=== PATIENT | male | born 1985 | race Caucasian/White ===

== ENCOUNTER → 2017-05-30 15:16 | Outpatient (CLI) | payer OTHER, SELFPAY ==
--- NOTE | 2017-05-30 15:20 | CT_ITS ---
CT sinus wo con COMPARISON: CT scan of brain 02/13/2013 HISTORY: Suspected sinusitis TECHNIQUE: Multiple axial scans of the peroneal sinuses and maxillofacial bones were obtained. Sagittal and coronal reformats were evaluated as well. FINDINGS: The peroneal sinuses appear clear with no acute or chronic inflammatory changes noted. The nasal septum is in midline with minimal bowing to the left inferiorly. There is minimal fluid in the right mastoids, left mastoid are clear. There is no abnormality of the facial bones identified. IMPRESSION: Suspect minimal right mastoiditis, no acute or chronic paranasal sinus disease identified.
== END ==
PROVIDERS: PCP Nurse Practitioner Family; Visit Provider Otolaryngology
DX: J32.0 Chronic maxillary sinusitis (principal)
CPT/HCPCS: 70486

== ENCOUNTER → 2017-09-15 15:55 | Outpatient (REF) | payer OTHER, SELFPAY ==
[2017-09-15 17:41] LABS: Amphetamine/Metha Screen,Urine Negative ng/mL (<1000); Barbiturates Screen,Urine Negative ng/mL (<200); Benzodiazepines Screen,Urine Negative ng/mL (<200); Cannabinoid Screen,Urine Negative ng/mL (<50); Cocaine Screen,Urine Negative ng/mL (<300); Methadone Screen,Urine Negative ng/mL (<300); Opiate Screen,Urine Negative ng/mL (<300); Phencyclidine Screen,Urine Negative ng/mL (<25)
== END ==
LOC: LAB 15:55
PROVIDERS: Visit Provider Emergency Medicine
DX: Z79.899 Other long term (current) drug therapy (principal)
CPT/HCPCS: 80305

== ENCOUNTER → 2017-12-19 13:48 | Outpatient (CLI) | payer OTHER, SELFPAY ==
[2017-12-19 15:20] LABS: Amphetamine/Metha Screen,Urine Negative ng/mL (<1000); Barbiturates Screen,Urine Negative ng/mL (<200); Benzodiazepines Screen,Urine Negative ng/mL (<200); Cannabinoid Screen,Urine Negative ng/mL (<50); Cocaine Screen,Urine Negative ng/mL (<300); Methadone Screen,Urine Negative ng/mL (<300); Opiate Screen,Urine Negative ng/mL (<300); Phencyclidine Screen,Urine Negative ng/mL (<25)
[2018-01-16 20:17] LABS: Benzodiazepines POSITIVE; Lorazepam POSITIVE
== END ==
PROVIDERS: PCP Nurse Practitioner Family; Visit Provider Nurse Practitioner Family
DX: Z79.899 Other long term (current) drug therapy (principal)
CPT/HCPCS: 80305; 80346

== ENCOUNTER → 2018-09-04 16:47 | Outpatient (CLI) | payer SELFPAY ==
[2018-09-04 19:05] LABS: Amphetamine/Metha Screen,Urine Negative ng/mL (<1000); Barbiturates Screen,Urine Negative ng/mL (<200); Benzodiazepines Screen,Urine Negative ng/mL (<200); Cannabinoid Screen,Urine Negative ng/mL (<50); Cocaine Screen,Urine Negative ng/mL (<300); Methadone Screen,Urine Negative ng/mL (<300); Opiate Screen,Urine Negative ng/mL (<300); Phencyclidine Screen,Urine Negative ng/mL (<25)
[2018-09-12 23:07] LABS: Alprazolam Negative (Cutoff=100); Benzodiazepines Positive ng/mL (Cutoff=100); Clonazepam Negative (Cutoff=100); Flurazepam Negative (Cutoff=100); Lorazepam Positive (.); Midazolam Negative (Cutoff=100); Temazepam Negative (Cutoff=100); Triazolam Negative (Cutoff=100)
== END ==
PROVIDERS: Physician Assistant; Visit Provider Nurse Practitioner Family
DX: Z79.891 Long term (current) use of opiate analgesic (principal); Z79.899 Other long term (current) drug therapy
CPT/HCPCS: 80305; 80346

== ENCOUNTER 2020-02-29 16:21 | Emergency (ER) | payer BC, SELFPAY ==
--- NOTE | 2020-02-29 16:09 | ECG_ITS ---
APPROVED REPORT Exam: Resting ECG HR:76 bpm ECG Measurements Heart Rate 76 AXES PA 122 P 75 QRSd 88 QRS 87 QT 374 T 62 QTc 420 Conclusion Normal sinus rhythm ST abnormality, no change from prior Abnormal ECG Electronically signed by : Vinod Laguerre, 02/29/2020 19:53:55
[2020-02-29 16:22] VITALS: BP 153/97; PULSE 79; RESP 20; TEMP 37; O2SAT 100; BMI 21.9
--- NOTE | 2020-02-29 16:23 | XR_ITS ---
PROCEDURE: XR CHEST PORTABLE CLINICAL HISTORY: chest pain COMPARISON: CR CXR CHEST(2 VIEWS-NOT PORTABLE) from 07/02/2012 CR CXR CHEST(2 VIEWS-NOT PORTABLE) from 02/13/2013 FINDINGS: The cardiomediastinal silhouette and pulmonary vascularity are within normal limits. The lungs are clear without infiltrates, suspicious nodules, or pleural effusions. No acute bony abnormalities. IMPRESSION: No acute findings. Dictated by: Moses Herrera MD 02/29/2020 16:51 Moses Herrera MD in [place] 02/29/2020 16:51
[2020-02-29 16:40] LABS: Basophils % 0.3 % (0.1-2.0); Eosinophils % 0.4 % (0.1-12.0); Hematocrit 43.9 % (42.0-52.0); Hemoglobin 15.6 g/dL (14.1-18.0); Lymphocytes # 1.7 K/mm3 (0.7-4.5); Lymphocytes % 22.2 % (10-50); Mean Corpuscular HGB Conc 35.5 g/dL (31.8-35.4); Mean Corpuscular Hemoglobin 31.1 pg (27.0-31.2); Mean Corpuscular Volume 87.5 fl (80-94); Mean Platelet Volume 7.9 fl (7.4-10.4); Monocytes # 0.5 K/mm3 (0.1-1.0); Monocytes % 6.9 % (1.7-9.3); Neutrophils # 5.3 K/mm3 (1.8-7.8); Neutrophils % 70.3 % (37.0-80.0); Platelet Count 181 K/mm3 (142-424); Red Blood Count 5.02 M/mm3 (4.60-6.20); Red Cell Distribution Width 13.2 % (11.5-17.5); White Blood Count 7.5 K/mm3 (4.8-10.8)
[2020-02-29 16:41] LABS: Chloride 100 mmol/L (98-107); Potassium 3.5 mmoL/L (3.5-5.1); Sodium 139 mmol/L (136-145)
[2020-02-29 16:44] LABS: Anion Gap 12.5 mEq/L (5-15); Blood Urea Nitrogen 18 mg/dl (9-20); Carbon Dioxide 30 mmol/L (22.0-30.0); Creatinine Clearance Estimated 131 mL/min (50-200); Estimated Glomerular Filt Rate 95 ml/min (>60); GFR (African American) 116 ML/MIN (>60)
[2020-02-29 16:45] LABS: Calcium 9.5 mg/dl (8.4-10.2); Glucose 132 mg/dl (74-100)
--- NOTE | 2020-02-29 16:58 | CT_ITS ---
PROCEDURE: CT ABDOMEN WO CON CLINICAL HISTORY: epigastric pain Abdominal pain, acute epigastric pain COMPARISON: CT ABDPELW/O CT ABD PELVIS W/O CONTRAST from 03/28/2014 TECHNIQUE: Axial images obtained with sagittal and coronal reformats. All CT scans at the facility use one or more dose reduction, viz: automated exposure control, ma/kV adjustment per patient size (including targeted exams where dose is matched to indication, i.e. head), or iterative reconstruction technique. FINDINGS: There is a 6 mm noncalcified nodule in the right lower lobe posteriorly. There is minimal thickening of the pericardium anteriorly. The liver, spleen, adrenal glands, pancreas, and kidneys have an unremarkable appearance. No renal or ureteral calculi. No hydronephrosis. The appendix is not clearly delineated. No secondary signs of appendicitis. No intestinal obstruction or free air. Multiple unopacified bowel loops in the abdomen or pelvis which could obscure or mimic pathology. If symptoms persist, consider repeat exam with IV and oral contrast.. There is some minimal central prostate calcifications. Urinary bladder wall slightly thickened but could be due to nondistention. No acute bony findings. IMPRESSION: 1. No acute finding. 2. Multiple unopacified bowel loops in the abdomen or pelvis which could obscure or mimic pathology. If symptoms persist, consider repeat exam with IV and oral contrast. Dictated by: Moses Herrera MD 03/01/2020 06:07 Moses Herrera MD in [place] 03/01/2020 06:07
[2020-02-29 17:00] LABS: Troponin I < 0.01 ng/ml (0.00-0.034)
--- NOTE | 2020-02-29 17:03 | HMH.EDGENADL ---
ED Disposition Clinical Impression: Epigastric abdominal pain Disposition: Home, Self-Care Condition on Discharge: Good Instructions: DI for Epigastric Pain Additional Instructions: You have been evaluated for epigastric pain. This could be due to reflux or other GI process. Please take omeprazole as prescribed. Follow-up with your PCP as soon as available. You may need an EGD. Return to the emergency department for any new or worsening symptoms, chest pain with exertion, syncope, any other concerns. Prescriptions: Omeprazole [Omeprazole 20mg Capsule] 20 mg PO DAILY #30 cap Transmission Status: Pending to [facility] Referrals: Keenan Wallace MD [Primary Care Provider] - Time of Disposition: 17:41 - Critical Care Critical Care Time: No Attestation: On 02/29/20, the high probability of a clinically significant, sudden or life threatening deterioration of the following system(s) required my full and direct attention, intervention and personal management. The time I documented below is in addition to time spent performing reported procedures but includes the following listed in this critical care notation. Medical Decision Making - Medical Records Medical records reviewed: Yes: I reviewed the patient's medical records. - Chepe Inquiry Pt receiving controlled substance: No Vital Signs: 02/29/20 16:22 Temperature 98.6 F Temperature Source Oral Pulse Rate [Left Radial] 79 Respiratory Rate 20 Blood Pressure [Right Arm] 153/97 H Blood Pressure Mean [Right Arm] 115 Blood Pressure Source [Right Arm] Automatic Cuff Blood Pressure Position [Right Arm] Sitting 02 Sat by Pulse Oximetry 100 Oxygen Delivery Method Room Air - Lab Data Lab Results 02/29/20 16:20: WBC 7.5, RBC 5.02, Hgb 15.6, Hct 43.9, MCV 87.5, MCH 31.1, MCHC 35.5 H, RDW 13.2, Plt Count 181, MPV 7.9, Neut % (Auto) 70.3, Lymph % (Auto) 22.2, [place] % (Auto) 6.9, Eos % (Auto) 0.4, Baso % (Auto) 0.3, Neut # (Auto) 5.3, Lymph # (Auto) 1.7, [place] # (Auto) 0.5, Eos # (Auto) 0.0, Baso # (Auto) 0.0 02/29/20 16:20: Sodium 139, Potassium 3.5, Chloride 100, Carbon Dioxide 30, Anion Gap 12.5, BUN 18, Creatinine 0.90, Estimated Creat Clear 131, Estimated GFR 95, Est GFR ( Amer) 116, Glucose 132 H, Calcium 9.5, Troponin I < 0.01 02/29/20 16:20: SARS-CoV-2 IgG Ab (Rapid) Negative, SARS-CoV-2 IgM Ab (Rapid) Negative Result diagrams: 02/29/20 16:20 02/29/20 16:20 Orders (Tests/Meds): ED MEDICATIONS Discontinued Medications Generic Name Dose Route Start Last Admin Trade Name Freq PRN Reason Stop Dose Admin Aspirin 325 mg 02/29/20 16:24 02/29/20 16:39 Aspirin 325mg Tablet PO 02/29/20 16:25 Not Given ONCE ONE Aspirin 324 mg 02/29/20 16:39 02/29/20 16:53 Aspirin 81mg Chewable Tablet PO 02/29/20 16:40 Not Given ONCE ONE ORDERS Category Date Time Status CT abdomen wo con Stat Cat Scan 02/29/20 16:58 Taken Troponin I Q3H Lab 02/29/20 19:30 Ordered Troponin I Q3H Lab 02/29/20 22:30 Ordered Medical Decision Narrative: In summary this is a 34-year-old male presenting to the emergency department with epigastric pain, chest pain. Patient clinically stable on arrival. Vital signs are within normal limits. Concern for hiatal hernia, gastritis, pancreatitis, biliary tract pathology, CAD. Will obtain CBC, CMP, chest x-ray, EKG, troponin profile, lipase, CT scan of the abdomen and pelvis. EKG shows sinus rhythm without evidence of ischemia. He has an allergy to IV contrast. Does not want to be premedicated. We will obtain CT scan without contrast. Initial laboratory results are reassuring. No significant leukocytosis. No anemia. Initial troponin is not elevated. Covid negative. CT scan of the abdomen and pelvis does not show a hiatal hernia or other acute pathology. Repeat troponin shows no change. On reassessment patient said that he was feeling better. Not having epigastric pain or chest
[2020-02-29 17:31] LABS: Coronavirus 19 IgG Antibody Negative (Negative); Coronavirus 19 IgM Antibody Negative (Negative)
[2020-02-29 17:49] LABS: Lipase 104 U/L (23-300)
[2020-02-29 17:55] VITALS: BP 125/72; PULSE 62; O2SAT 100
[2020-02-29 18:03] VITALS: BP 129/73; PULSE 69; O2SAT 96
[2020-02-29 18:39] VITALS: BP 114/82; PULSE 71; O2SAT 99
[2020-02-29 19:02] VITALS: BP 128/75; PULSE 66; O2SAT 99
[2020-02-29 19:07] LABS: Troponin I < 0.01 ng/ml (0.00-0.034)
[2020-02-29 19:14] VITALS: BP 128/75; PULSE 77; RESP 15; TEMP 36.6; O2SAT 97
== END 2020-02-29 19:17 | disposition home or self-care (01) ==
PROVIDERS: Emergency Provider Emergency Medicine; PCP Emergency Medicine
DX: R10.13 Epigastric pain (principal); R07.9 Chest pain, unspecified; Z01.84 Encounter for antibody response examination; F41.9 Anxiety disorder, unspecified; Z88.0 Allergy status to penicillin; Z79.899 Other long term (current) drug therapy
CPT/HCPCS: 71045; 74150; 80048; 83690; 84484; 85025; 86328; 93005; 99283; 99284

== ENCOUNTER → 2020-03-03 14:07 | Outpatient (CLI) | payer BC, SELFPAY ==
[2020-03-03 14:16] LABS: Adenovirus F 40/41, stool Not Detected (NotDetected); Astrovirus Not Detected (NotDetected); Campylobacter Not Detected (NotDetected); Clostridium Difficile A/B, PCR Not Detected (NotDetected); Cryptosporidium Not Detected (NotDetected); Cyclospora Cayetanesis Not Detected (NotDetected); Entamoeba histolytica Not Detected (NotDetected); Enteroaggregative E coli Not Detected (NotDetected); Enteropathogenic E coli Not Detected (NotDetected); Enterotoxigenic E coli Not Detected (NotDetected); Giardia lamblia Not Detected (NotDetected); Norovirus Not Detected (NotDetected); Plesimonas Shigalloides, PCR Not Detected (NotDetected); Rotavirus A Not Detected (NotDetected); Salmonella, PCR Not Detected (NotDetected); Sapovirus Not Detected (NotDetected); Shiga-like toxin E coli Not Detected (NotDetected); Shigella Enterovasive E coli Not Detected (NotDetected); Vibrio Cholerae Not Detected (NotDetected); Vibrio, PCR Not Detected (NotDetected); Yersinia Entercolitica, PCR Not Detected (NotDetected)
== END ==
PROVIDERS: Visit Provider Nurse Practitioner Family
DX: R19.7 Diarrhea, unspecified (principal)
CPT/HCPCS: 87506

== ENCOUNTER → 2020-03-03 14:33 | Outpatient (CLI) | payer BC, SELFPAY | PROVIDERS: PCP Nurse Practitioner Family; Visit Provider Nurse Practitioner Family | DX: Z11.52 Encounter for screening for COVID-19 (principal) | CPT/HCPCS: U0003 ==

== ENCOUNTER 2020-03-21 09:18 | Emergency (ER) | payer BC, SELFPAY ==
[2020-03-21 09:18] VITALS: BP 135/84; PULSE 100; RESP 16; TEMP 36.9; O2SAT 95; BMI 21.9
--- NOTE | 2020-03-21 09:32 | HMH.EDGENADL ---
ED Disposition Clinical Impression: Lightheadedness Disposition: Home, Self-Care Condition on Discharge: Good Instructions: DI for Dizziness-Nonvertigo Additional Instructions: Follow-up with your primary care provider, call for appointment. Referrals: Keenan Wallace MD [Primary Care Provider] - - Critical Care Critical Care Time: No Attestation: On 03/21/20, the high probability of a clinically significant, sudden or life threatening deterioration of the following system(s) required my full and direct attention, intervention and personal management. The time I documented below is in addition to time spent performing reported procedures but includes the following listed in this critical care notation. Medical Decision Making - Medical Records Medical records reviewed: Yes: I reviewed the patient's medical records. MR Comment: Reviewed recent emergency department visit on 02/29/2020. Chief complaint epigastric pain. Work-up unremarkable. - Chepe Inquiry Pt receiving controlled substance: No Vital Signs: 03/21/20 09:18 03/21/20 10:18 03/21/20 11:11 Temperature 98.5 F Temperature Source Oral Pulse Rate [Right] 100 H 79 66 Respiratory Rate 16 Blood Pressure [Right Arm] 135/84 121/73 113/75 Blood Pressure Mean [Right Arm] 101 89 87 Blood Pressure Source [Right Arm] Automatic Cuff Automatic Cuff Automatic Cuff Blood Pressure Position [Right Arm] Sitting Sitting Sitting 02 Sat by Pulse Oximetry 95 100 100 Oxygen Delivery Method Room Air Room Air Room Air - Lab Data Lab Results 03/21/20 10:08: WBC 5.1, RBC 5.22, Hgb 16.1, Hct 46.4, MCV 89.0, MCH 30.7, MCHC 34.6, RDW 13.5, Plt Count 179, MPV 8.3, Neut % (Auto) 71.9, Lymph % (Auto) 19.7, [place] % (Auto) 7.5, Eos % (Auto) 0.6, Baso % (Auto) 0.3, Neut # (Auto) 3.7, Lymph # (Auto) 1.0, [place] # (Auto) 0.4, Eos # (Auto) 0.0, Baso # (Auto) 0.0 03/21/20 10:08: Sodium 141, Potassium 3.5, Chloride 101, Carbon Dioxide 31 H, Anion Gap 12.5, BUN 15, Creatinine 1.00, Estimated Creat Clear 115, Estimated GFR 85, Est GFR ( Amer) 102, Glucose 98, Calcium 9.7, Total Bilirubin 1.0, AST 22, ALT 14, Alkaline Phosphatase 60, Troponin I < 0.01, Total Protein 8.2, Albumin 5.0, Globulin 3.2, Albumin/Globulin Ratio 1.6 Result diagrams: 03/21/20 10:08 03/21/20 10:08 Orders (Tests/Meds): ORDERS Category Date Time Status Troponin I Q3H Lab 03/21/20 12:45 Ordered Troponin I Q3H Lab 03/21/20 15:45 Ordered - ECG Data Tracing #1 EKG interpreted by Reinaldo Medina MD: Rhythm: sinus Rate: 68 [place]: normal Ectopy: none Conduction: normal ST Segment Changes: none T Wave Changes: none Q Waves: none No evidence of acute ischemia or injury Normal electrocardiogram General Adult HPI - General Stated complaint: dizzy, nausea Time Seen by Provider: 03/21/20 09:32 - History of Present Illness HPI narrative: For several days he has been lightheaded. Denies vertigo type of dizziness. However, he says that when this initially started his ears were popping a lot so he thought it might be an inner ear problem. However, symptoms have persisted. He admits to anxiety, especially Covid anxiety. He checks his pulse oximetry at home and says that his heart rate has been up to 100 sometimes, which concerns him. He has some nausea, but no vomiting or diarrhea. He was seen in the emergency department here on 02/29/2020 for epigastric pain, he says that he was told he was mildly dehydrated. Therefore, he has been drinking lots of fluids. He followed up with his primary care doctor in the office last week. He is not having chest pain or shortness of breath. No neurologic symptoms such as numbness, weakness, headaches, vision changes. - Related Data Previous Rx's Medication Instructions Recorded lorazepam 0.5 mg tablet 0.5 mg PO TID PRN #90 tab 01/12/20 Omeprazole [Omeprazole 20mg 20 mg PO DAILY #30 cap 02/29/20 Capsule] dicyclomine 20 mg tablet
--- NOTE | 2020-03-21 10:03 | ECG_ITS ---
APPROVED REPORT Exam: Resting ECG HR:68 bpm ECG Measurements Heart Rate 68 AXES SD 128 P 59 QRSd 88 QRS 80 QT 382 T 69 QTc 406 Conclusion Normal sinus rhythm Normal ECG Electronically signed by : Vinod Laguerre, 03/22/2020 05:57:39
[2020-03-21 10:18] VITALS: BP 121/73; PULSE 79; O2SAT 100
[2020-03-21 10:24] LABS: Basophils % 0.3 % (0.1-2.0); Eosinophils % 0.6 % (0.1-12.0); Hematocrit 46.4 % (42.0-52.0); Hemoglobin 16.1 g/dL (14.1-18.0); Lymphocytes % 19.7 % (10-50); Mean Corpuscular HGB Conc 34.6 g/dL (31.8-35.4); Mean Corpuscular Hemoglobin 30.7 pg (27.0-31.2); Mean Platelet Volume 8.3 fl (7.4-10.4); Monocytes # 0.4 K/mm3 (0.1-1.0); Monocytes % 7.5 % (1.7-9.3); Neutrophils # 3.7 K/mm3 (1.8-7.8); Neutrophils % 71.9 % (37.0-80.0); Platelet Count 179 K/mm3 (142-424); Red Blood Count 5.22 M/mm3 (4.60-6.20); Red Cell Distribution Width 13.5 % (11.5-17.5); White Blood Count 5.1 K/mm3 (4.8-10.8)
[2020-03-21 10:41] LABS: Chloride 101 mmol/L (98-107); Potassium 3.5 mmoL/L (3.5-5.1); Sodium 141 mmol/L (136-145)
[2020-03-21 10:44] LABS: Alanine Aminotransferase 14 U/L (12-78); Albumin/Globulin Ratio 1.6 (1.1-1.8); Alkaline Phosphatase 60 U/L (38-126); Anion Gap 12.5 mEq/L (5-15); Aspartate Amino Transferase 22 U/L (17-59); Blood Urea Nitrogen 15 mg/dl (9-20); Calcium 9.7 mg/dl (8.4-10.2); Carbon Dioxide 31 mmol/L (22.0-30.0); Creatinine Clearance Estimated 115 mL/min (50-200); Estimated Glomerular Filt Rate 85 ml/min (>60); GFR (African American) 102 ML/MIN (>60); Globulin 3.2 g/dL (1.3-3.2); Glucose 98 mg/dl (74-100); Total Protein,Serum 8.2 g/dl (6.3-8.2)
[2020-03-21 11:10] LABS: Troponin I < 0.01 ng/ml (0.00-0.034)
[2020-03-21 11:11] VITALS: BP 113/75; PULSE 66; O2SAT 100
[2020-03-21 11:41] VITALS: BP 114/66; PULSE 65; RESP 16; TEMP 36.9; O2SAT 100
== END 2020-03-21 11:42 | disposition home or self-care (01) ==
PROVIDERS: Emergency Provider Emergency Medicine; PCP Emergency Medicine
DX: R42 Dizziness and giddiness (principal); F41.9 Anxiety disorder, unspecified
CPT/HCPCS: 80053; 84484; 85025; 93005; 99282

== ENCOUNTER → 2020-03-24 17:59 | Outpatient (CLI) | payer BC, SELFPAY ==
[2020-03-24 18:23] LABS: Basophils % 0.3 % (0.1-2.0); Eosinophils # 0.1 K/mm3 (0.0-0.4); Eosinophils % 0.8 % (0.1-12.0); Hematocrit 43.9 % (42.0-52.0); Hemoglobin 15.3 g/dL (14.1-18.0); Lymphocytes # 1.9 K/mm3 (0.7-4.5); Lymphocytes % 27.6 % (10-50); Mean Corpuscular HGB Conc 34.9 g/dL (31.8-35.4); Mean Corpuscular Hemoglobin 30.6 pg (27.0-31.2); Mean Corpuscular Volume 87.9 fl (80-94); Mean Platelet Volume 8.4 fl (7.4-10.4); Monocytes # 0.5 K/mm3 (0.1-1.0); Neutrophils # 4.4 K/mm3 (1.8-7.8); Neutrophils % 64.2 % (37.0-80.0); Platelet Count 187 K/mm3 (142-424); Red Blood Count 4.99 M/mm3 (4.60-6.20); Red Cell Distribution Width 13.3 % (11.5-17.5); White Blood Count 6.9 K/mm3 (4.8-10.8)
[2020-03-24 19:06] LABS: Chloride 100 mmol/L (98-107); Sodium 138 mmol/L (136-145)
[2020-03-24 19:07] LABS: Potassium 4.1 mmoL/L (3.5-5.1)
[2020-03-24 19:09] LABS: Alanine Aminotransferase 11 U/L (12-78); Albumin/Globulin Ratio 1.7 (1.1-1.8); Alkaline Phosphatase 64 U/L (38-126); Anion Gap 13.1 mEq/L (5-15); Aspartate Amino Transferase 22 U/L (17-59); Bilirubin,Total 0.8 mg/dl (0.2-1.3); Blood Urea Nitrogen 17 mg/dl (9-20); Carbon Dioxide 29 mmol/L (22.0-30.0); Estimated Glomerular Filt Rate 85 ml/min (>60); GFR (African American) 102 ML/MIN (>60)
[2020-03-24 19:10] LABS: Calcium 9.7 mg/dl (8.4-10.2); Glucose 102 mg/dl (74-100)
== END ==
PROVIDERS: Visit Provider Nurse Practitioner Family
DX: N99.89 Other postprocedural complications and disorders of genitourinary system (principal); R34 Anuria and oliguria; M54.5 Low back pain
CPT/HCPCS: 80053; 85025; 87086

== ENCOUNTER 2020-04-07 17:13 | Emergency (ER) | payer BC, SELFPAY ==
[2020-04-07 17:15] VITALS: BP 154/54; PULSE 80; RESP 16; TEMP 36.6; O2SAT 98; BMI 20.6
--- NOTE | 2020-04-07 17:25 | HMH.EDGENADL ---
ED Disposition Clinical Impression: Periumbilical abdominal pain Low back pain Qualifiers: Chronicity: acute Back pain laterality: bilateral Sciatica presence: without sciatica Qualified Code(s): M54.5 - Low back pain Disposition: Home, Self-Care Condition on Discharge: Good Instructions: DI for Acute Abdominal Pain, DI for Low Back Pain Additional Instructions: Tylenol or ibuprofen for pain. Additional instructions for BACK PAIN: See your physician as soon as possible for further evaluation. Return immediately if back pain becomes intolerable, or if fever, numbness or weakness of your legs, loss of control of your bowels or bladder. Additional instructions for ABDOMINAL PAIN: See your physician as soon as possible for further evaluation. Return immediately if worsening abdominal pain, vomiting, shortness of breath, fever, vomiting of blood or abdominal distention. Referrals: Shea Duarte APRN [Primary Care Provider] - - Critical Care Critical Care Time: No Attestation: On , the high probability of a clinically significant, sudden or life threatening deterioration of the following system(s) required my full and direct attention, intervention and personal management. The time I documented below is in addition to time spent performing reported procedures but includes the following listed in this critical care notation. Medical Decision Making - Chepe Inquiry Pt receiving controlled substance: No Vital Signs: 04/07/20 17:15 04/07/20 18:31 Temperature 98 F Temperature Source Oral Pulse Rate [Radial] 80 83 Respiratory Rate 16 16 Blood Pressure [Right Arm] 154/54 H 154/57 H Blood Pressure Mean [Right Arm] 87 89 Blood Pressure Position [Right Arm] Sitting 02 Sat by Pulse Oximetry 98 97 Oxygen Delivery Method Room Air - Lab Data Lab results reviewed: Yes: I reviewed the patient's lab results. Lab Results 04/07/20 17:25: Urine Color Yellow, Urine Appearance Clear, Urine pH 7.0, Ur Specific [place] 1.020, Urine Protein Negative, Urine Glucose (UA) Negative, Urine Ketones Negative, Urine Blood Negative, Urine Nitrate Negative, Urine Bilirubin Negative, Urine Urobilinogen 0.2, Ur Leukocyte Esterase Negative, Urine RBC None, Urine WBC None, Ur Squamous Epith Cells Occasional, Urine Bacteria None 04/07/20 17:35: WBC 6.3, RBC 4.76, Hgb 14.5, Hct 42.6, MCV 89.5, MCH 30.5, MCHC 34.1, RDW 13.0, Plt Count 182, MPV 7.9, Neut % (Auto) 62.4, Lymph % (Auto) 30.3, [place] % (Auto) 6.1, Eos % (Auto) 0.9, Baso % (Auto) 0.4, Neut # (Auto) 3.9, Lymph # (Auto) 1.9, [place] # (Auto) 0.4, Eos # (Auto) 0.1, Baso # (Auto) 0.0 04/07/20 17:35: Sodium 140, Potassium 4.0, Chloride 101, Carbon Dioxide 32 H, Anion Gap 11.0, BUN 13, Creatinine 0.90, Estimated Creat Clear 120, Estimated GFR 95, Est GFR ( Amer) 116, Glucose 108 H, Calcium 9.7, Total Bilirubin 0.6, AST 24, ALT 14, Alkaline Phosphatase 58, Total Protein 8.3 H, Albumin 5.1 H, Globulin 3.2, Albumin/Globulin Ratio 1.6 04/07/20 17:35: Lipase 183 Result diagrams: 04/07/20 17:35 04/07/20 17:35 Medical Decision Narrative: I do not feel imaging is needed. He had a CT scan a month ago which was unremarkable. His abdominal examination is benign. Laboratories are not unremarkable. General Adult HPI - General Stated complaint: lower Abd,back and legs pain Time Seen by Provider: 04/07/20 17:25 - History of Present Illness HPI narrative: Complains of abdominal pain in a bandlike fashion across his mid abdomen, lower back pain into both iliac crest and inguinal areas. Symptoms for about 4 days. Says he is having bowel movements about once a day, but they are small. No vomiting. He says that he he was supposed to see a urologist yesterday because his primary care doctor felt his prostate was enlarged, but the urologist did not show up. He did see cardiology yesterday because of a minimally thickened pericardium on a CT scan of his abdomen. He was se
[2020-04-07 17:38] LABS: Microscopic, Urine URINE MICROSCOPIC (MICROSCOPIC)
[2020-04-07 17:39] LABS: Appearance,Urine CLEAR (Clear); Bilirubin,Urine Negative (Negative); Blood, Urine Negative (Negative); Color,Urine YELLOW (Yellow); Glucose,Urine (UA) Negative (Negative); Ketones,Urine Negative (Negative); Leukocyte Esterase,Urine Negative (Negative); Nitrate,Urine Negative (Negative); Protein,Urine Negative (Negative); Urobilinogen,Urine 0.2 EU/dl (0.2)
[2020-04-07 17:45] LABS: Basophils % 0.4 % (0.1-2.0); Eosinophils # 0.1 K/mm3 (0.0-0.4); Eosinophils % 0.9 % (0.1-12.0); Hematocrit 42.6 % (42.0-52.0); Hemoglobin 14.5 g/dL (14.1-18.0); Lymphocytes # 1.9 K/mm3 (0.7-4.5); Lymphocytes % 30.3 % (10-50); Mean Corpuscular HGB Conc 34.1 g/dL (31.8-35.4); Mean Corpuscular Hemoglobin 30.5 pg (27.0-31.2); Mean Corpuscular Volume 89.5 fl (80-94); Mean Platelet Volume 7.9 fl (7.4-10.4); Monocytes # 0.4 K/mm3 (0.1-1.0); Monocytes % 6.1 % (1.7-9.3); Neutrophils # 3.9 K/mm3 (1.8-7.8); Neutrophils % 62.4 % (37.0-80.0); Platelet Count 182 K/mm3 (142-424); Red Blood Count 4.76 M/mm3 (4.60-6.20); White Blood Count 6.3 K/mm3 (4.8-10.8)
[2020-04-07 18:02] LABS: Squamous Epithelial Cell,Urine Occasional #/hpf (0-5)
[2020-04-07 18:03] LABS: Chloride 101 mmol/L (98-107); Sodium 140 mmol/L (136-145)
[2020-04-07 18:06] LABS: Alanine Aminotransferase 14 U/L (12-78); Alkaline Phosphatase 58 U/L (38-126); Aspartate Amino Transferase 24 U/L (17-59); Bilirubin,Total 0.6 mg/dl (0.2-1.3); Blood Urea Nitrogen 13 mg/dl (9-20); Creatinine Clearance Estimated 120 mL/min (50-200); Estimated Glomerular Filt Rate 95 ml/min (>60); GFR (African American) 116 ML/MIN (>60)
[2020-04-07 18:07] LABS: Albumin Level 5.1 g/dl (3.5-5.0); Albumin/Globulin Ratio 1.6 (1.1-1.8); Calcium 9.7 mg/dl (8.4-10.2); Carbon Dioxide 32 mmol/L (22.0-30.0); Globulin 3.2 g/dL (1.3-3.2); Glucose 108 mg/dl (74-100); Total Protein,Serum 8.3 g/dl (6.3-8.2)
[2020-04-07 18:20] LABS: Lipase 183 U/L (23-300)
[2020-04-07 18:31] VITALS: BP 154/57; PULSE 83; RESP 16; O2SAT 97
[2020-04-07 18:59] VITALS: BP 123/65; PULSE 88; RESP 16; TEMP 36.6; O2SAT 98
== END 2020-04-07 19:01 | disposition home or self-care (01) ==
PROVIDERS: Emergency Provider Emergency Medicine; PCP Nurse Practitioner Family
DX: R10.33 Periumbilical pain (principal); M54.5 Low back pain; F41.9 Anxiety disorder, unspecified; G43.709 Chronic migraine without aura, not intractable, without status migrainosus; Z88.0 Allergy status to penicillin; Z79.899 Other long term (current) drug therapy
CPT/HCPCS: 80053; 81001; 83690; 85025; 99283

== ENCOUNTER → 2020-04-13 17:06 | Outpatient (CLI) | payer BC, SELFPAY ==
[2020-04-13 17:34] LABS: Basophils % 0.3 % (0.1-2.0); Eosinophils # 0.1 K/mm3 (0.0-0.4); Eosinophils % 0.9 % (0.1-12.0); Hematocrit 42.7 % (42.0-52.0); Hemoglobin 14.7 g/dL (14.1-18.0); Lymphocytes # 1.9 K/mm3 (0.7-4.5); Lymphocytes % 22.4 % (10-50); Mean Corpuscular HGB Conc 34.3 g/dL (31.8-35.4); Mean Corpuscular Hemoglobin 30.7 pg (27.0-31.2); Mean Corpuscular Volume 89.4 fl (80-94); Mean Platelet Volume 9.1 fl (7.4-10.4); Monocytes # 0.5 K/mm3 (0.1-1.0); Monocytes % 6.1 % (1.7-9.3); Neutrophils % 70.4 % (37.0-80.0); Platelet Count 188 K/mm3 (142-424); Red Blood Count 4.78 M/mm3 (4.60-6.20); Red Cell Distribution Width 13.3 % (11.5-17.5); White Blood Count 8.5 K/mm3 (4.8-10.8)
[2020-04-13 17:38] LABS: Chloride 103 mmol/L (98-107)
[2020-04-13 17:39] LABS: Sodium 141 mmol/L (136-145)
[2020-04-13 17:41] LABS: Alanine Aminotransferase 14 U/L (12-78); Alkaline Phosphatase 62 U/L (38-126); Aspartate Amino Transferase 25 U/L (17-59); Bilirubin,Total 0.4 mg/dl (0.2-1.3); Blood Urea Nitrogen 16 mg/dl (9-20); Carbon Dioxide 29 mmol/L (22.0-30.0); Estimated Glomerular Filt Rate 109 ml/min (>60); GFR (African American) 132 ML/MIN (>60)
[2020-04-13 17:42] LABS: Albumin Level 4.8 g/dl (3.5-5.0); Albumin/Globulin Ratio 1.7 (1.1-1.8); Calcium 9.9 mg/dl (8.4-10.2); Chol/HDL Ratio 2.3 (1-3.5); Cholesterol 116 mg/dl (140-200); Globulin 2.9 g/dL (1.3-3.2); Glucose 94 mg/dl (74-100); HDL Cholesterol 51 mg/dl (40-60); Magnesium 1.9 mg/dl (1.6-2.3); Total Protein,Serum 7.7 g/dl (6.3-8.2); Triglycerides 64 mg/dl (30-150); VLDL Cholesterol 13 mg/dL (0-40)
[2020-04-13 17:54] LABS: Direct LDL Cholesterol 55.14 mg/dL (100-129)
[2020-04-13 18:00] LABS: T4 (Thyroxine) 5.2 ug/dl (5.53-11.0)
[2020-04-13 18:31] LABS: Vitamin B12 374 pg/mL (239-931)
== END ==
LOC: LAB 17:06 → LAB.CARL 17:19 → LAB.DROPOF 17:20
PROVIDERS: Visit Provider Nurse Practitioner Family
DX: F41.9 Anxiety disorder, unspecified (principal); M54.5 Low back pain; R20.2 Paresthesia of skin
CPT/HCPCS: 80053; 80061; 82306; 82607; 83735; 84436; 84443; 85025

== ENCOUNTER → 2020-04-24 14:34 | Outpatient (CLI) | payer BC, SELFPAY ==
--- NOTE | 2020-04-24 14:35 | CA_ITS ---
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[place], Ht: 6 ft 3 in Wt: 175 lbs BSA: 2.07 m2 HR: 85 bpm BP: 117/79 mmHg Rhythm: NSR Indications: Chest pain Stress Test Details Test: [place] HR Resting HR: 97 bpm Max Heart Rate (APMHR): 184 bpm Max HR Achieved: 169 bpm Target HR (85% APMHR): 156 bpm % of APMHR: 91 Recovery HR: 96 bpm BP Resting BP: 117/79 mmHg Max BP: 150/80 mmHg Recovery BP: 130.0/87.0 mmHg ECG Clinical Reason for Termination: Completed protocol Exercise duration: 09:44 min Highest Stage Achieved: Exercise capacity: 10.1 METs Stress ECG Conclusion Max HR - 169: %of PM - 92%: Max B/P - 150/80: MET's -10.1 - test stopped due to shortness of breath - resolved in recovery. Denies chest pain - positive shortness of breath during peak exercise. No ectopy. Less than 1.[address] depression. GXT only - apprioate B/P response - Excellent exercise capacity - no ectopy and less than 1.5mm ST depression. Test Summary REST . . . . . . . Resting REST 02:29 0.0 0.0 97 . 117/ 79 . . Stage 1 01:00 10.0 1.7 129 . . . . Stage 1 02:00 10.0 1.7 129 . 130/ 70 . . Stage 1 03:00 10.0 1.7 117 . 130/ 70 . . Stage 2 01:00 12.0 2.5 129 . . . . Stage 2 02:00 12.0 2.5 140 . . . . Stage 2 03:00 12.0 2.5 136 . 130/ 70 . . Stage 3 01:00 14.0 3.4 152 . . . . Stage 3 02:00 14.0 3.4 152 . . . . Stage 3 03:00 14.0 3.4 160 . 140/ 80 . . Stage 4 00:44 16.0 4.2 169 . . . Stop exercise at 09:44 RECOVERY 01:00 0.0 0.0 135 . 150/ 80 . . RECOVERY 02:00 0.0 0.0 115 . 150/ 80 . . RECOVERY 03:00 0.0 0.0 108 . 148/ 89 . . RECOVERY 04:00 0.0 0.0 97 . 148/ 89 . . RECOVERY 05:00 0.0 0.0 105 . 148/ 89 . . RECOVERY 05:31 0.0 0.0 108 . 130/ 87 . . Electronically signed by : Bennie Henson, 04/27/2020 15:14:15
== END ==
PROVIDERS: PCP Nurse Practitioner Family; Visit Provider Nurse Practitioner Family
DX: R07.89 Other chest pain (principal); R06.00 Dyspnea, unspecified; F41.9 Anxiety disorder, unspecified
CPT/HCPCS: 93017; 93306

== ENCOUNTER → 2020-04-25 14:27 | Outpatient (CLI) | payer BC, SELFPAY ==
--- NOTE | 2020-04-25 14:28 | CT_ITS ---
PROCEDURE: CT HEAD/BRAIN WO CON CLINICAL INDICATION: dizzy Headaches and dizziness COMPARISON: CT HDWO CT HEAD W/O CONTRAST from 11/30/2013 TECHNIQUE: Axial images obtained. All CT scans at the facility use one or more dose reduction, viz: automated exposure control, ma/kV adjustment per patient size (including targeted exams where dose is matched to indication, i.e. head), or iterative reconstruction technique. FINDINGS: No midline shift, mass effect, intracranial hemorrhage, hydrocephalus, or extra-axial fluid collection is evident. The calvarium has an unremarkable appearance. There is mild opacification of the right mastoid sinus. No sinus air-fluid level. IMPRESSION: No acute intracranial finding Mild right mastoid sinus disease Dictated by: Moses Herrera MD 04/25/2020 17:34 Moses Herrera MD in [place] 04/25/2020 17:34
== END ==
PROVIDERS: PCP Nurse Practitioner Family; Visit Provider Nurse Practitioner Family
DX: R51.9 Headache, unspecified (principal); R42 Dizziness and giddiness
CPT/HCPCS: 70450

== ENCOUNTER 2020-05-12 15:34 | Emergency (ER) | payer BC, SELFPAY ==
[2020-05-12 15:40] VITALS: BP 139/82; PULSE 86; RESP 20; TEMP 36.4; O2SAT 100; BMI 21.2
--- NOTE | 2020-05-12 16:21 | HMH.EDUTC ---
[facility] – [place] Disposition Clinical Impression: Vertigo Soft tissue injury of neck Qualifiers: Encounter type: initial encounter Qualified Code(s): S19.9XXA - Unspecified injury of neck, initial encounter Dysphagia Qualifiers: Dysphagia type: other dysphagia Qualified Code(s): R13.19 - Other dysphagia Disposition: Still a Patient Condition on Discharge: Undetermined Referrals: Shea Duarte APRN [Primary Care Provider] - Time of Disposition: 16:24 Medical Decision Making - Chepe Inquiry Pt receiving controlled substance: No Vital Signs: 05/12/20 15:40 Temperature 97.6 F Temperature Source Oral Pulse Rate [Right Brachial] 86 Respiratory Rate 20 Blood Pressure [Right Arm] 139/82 Blood Pressure Mean [Right Arm] 101 Blood Pressure Source [Right Arm] Automatic Cuff Blood Pressure Position [Right Arm] Sitting 02 Sat by Pulse Oximetry 100 Oxygen Delivery Method Room Air [facility] [place] HPI - General Stated complaint: throat is tight Time Seen by Provider: 05/12/20 16:21 Mode of Arrival: Ambulatory Source of Information: Patient Limitations: No Limitations Description of Symptoms (Recalled from Triage Doc. by RN): PATIENT STATES HE WAS AT WORK APPROX 1 WEEK AGO AND A SMALL PIECE OF PLASTIC HIT HIM IN THE RIGHT SIDE OF HIS NECK AND CAUSED 2 SCRATCHES. LATER ON THAT EVENING HE REPORTS HIS THROAT TIGHTENED AND HAS BEEN DOING SO OFF AND ON X 1 WEEK. ALSO C/O INTERMITTEN DIZZINESS X 1 WEEK. HE STATES HE CONTACTED HIS PCP WHO REFERRED HIM TO ER HEENT Symptoms (Recalled from RN notes): Yes Resp Symptoms (Recalled from RN notes): No Skin Symptoms (Recalled from RN notes): No MS Symptoms (Recalled from RN notes): No Functional Status (Recalled from RN notes): WNL - History of Present Illness Provider Complaint: Patient was working 5-6 days ago when he struck a bolt which flew up and hit him in the neck. At the time, it only caused two small scratches. The next day he began having discomfort in his neck, swelling in the [place] apple area. He states that drinking is painful and sometimes eating bread gets stuck. He has also been dizzy. He called his family doctor who wanted him evaluated in the ER with scan of his neck. Onset (ago): day(s) (6) Location: neck Relieving factors: none Exacerbating factors: none Associated symptoms: denies other symptoms Treatments prior to arrival: none - Related Data Previous Rx's Medication Instructions Recorded lorazepam 0.5 mg tablet 0.5 mg PO TID PRN 30 Days #100 tab 05/03/20 Allergies Allergy/AdvReac Type Severity Reaction Status Date / Time Penicillins Allergy Verified 05/12/20 16:03 CONTRAST Allergy Uncoded 05/12/20 16:04 - Worker's Comp Is this a Worker's Comp case?: No [facility] History - Hepatitis A Screen Drug use history?: No High risk sexual behaviors?: No History of sexually transmitted infection?: No Currently employed?: No Childcare worker?: No Do you have indoor plumbing?: Yes Do you have electricity?: Yes Attestation statement:: This patient has been screened for Hepatitis A risk factors. I have reviewed the patient's past medical history: Yes Medical History: Reports:: Anxiety, Migraine Laterality Cases: Bilateral: Myringotomy (Ear Tubes), Tonsillectomy Other Surgeries: Yes: No Previous Surgery Amputation: No Fractures: No - Social History Smoking Status: Former smoker Alcohol Intake: never Substance Use Type: denies use Occupational Status: other Housing: house Household Members: family - Psychiatric History Pschychiatric History:: Reports:: Anxiety Family Hx:: Hypertension, Hyperlipidemia ROS Obtained: Yes All systems reviewed & no additional complaints - ENT Ears, Nose, Mouth, and Throat: Reports as per HPI, Reports sore throat, Reports vertigo/dizziness Physical Exam - General General appearance: alert, in no apparent distress - Head Head exam: normocephalic - Eye Eye exam: Present: PERRL - ENT ENT exam: Present: normal
[2020-05-12 16:23] LABS: UTC Strep Screen (Rapid) Negative (Negative)
--- NOTE | 2020-05-12 16:25 | PC.NURSE ---
PATIENT SENT TO ER PER Jimmy FRANCO FOR FURTHER EVALUATION. REPORT GIVEN TO Caitlin MILLS RN
--- NOTE | 2020-05-12 16:36 | CT_ITS ---
PROCEDURE: CT SOFT TISSUE NECK WO CON CLINICAL HISTORY: trauma to anterior neck COMPARISON: No exams were available for comparison TECHNIQUE: Oral Contrast: None IV Contrast: None Axial images obtained with sagittal and coronal reformats. All CT scans at the facility use one or more dose reduction, viz: automated exposure control, ma/kV adjustment per patient size (including targeted exams where dose is matched to indication, i.e. head), or iterative reconstruction technique. FINDINGS: Unremarkable nasopharynx. There is no abnormal fluid collection or soft tissue gas apparent. No evidence tracheal cartilage fracture. There is a small cystic area in the thyroid cartilage on the right centrally measuring 3 mm. This is of questionable clinical significance. The epiglottis has an unremarkable appearance. Scattered small nodes are present in the neck. Scarring is present in the lung apices. No acute bony findings. IMPRESSION: Unremarkable unenhanced CT of the neck Dictated by: Moses Herrera MD 05/12/2020 17:54 Moses Herrera MD in [place] 05/12/2020 17:54
--- NOTE | 2020-05-12 16:38 | HMH.EDGENADL ---
ED Disposition Clinical Impression: Soft tissue injury of neck Qualifiers: Encounter type: initial encounter Qualified Code(s): S19.9XXA - Unspecified injury of neck, initial encounter Disposition: Home, Self-Care Condition on Discharge: Good Additional Instructions: Please follow-up with bearing ring assembler this week and return for difficulty breathing swallowing or any other concerns within 8 hours Referrals: Shea Duarte APRN [Primary Care Provider] - - Critical Care Critical Care Time: No Attestation: On 05/12/20, the high probability of a clinically significant, sudden or life threatening deterioration of the following system(s) required my full and direct attention, intervention and personal management. The time I documented below is in addition to time spent performing reported procedures but includes the following listed in this critical care notation. Medical Decision Making - Medical Records Medical records reviewed: Yes: I reviewed the patient's medical records. - Chepe Inquiry Pt receiving controlled substance: No Vital Signs: 05/12/20 15:40 05/12/20 17:19 Temperature 97.6 F Temperature Source Oral Pulse Rate [Right Brachial] 86 78 Respiratory Rate 20 20 Blood Pressure [Right Arm] 139/82 Blood Pressure Mean [Right Arm] 101 Blood Pressure Source [Right Arm] Automatic Cuff Blood Pressure Position [Right Arm] Sitting 02 Sat by Pulse Oximetry 100 100 Oxygen Delivery Method Room Air - Lab Data Lab Results 05/12/20 16:04: Strep Scn [facility] Negative 05/12/20 17:10: WBC 6.6, RBC 4.74, Hgb 14.6, Hct 43.4, MCV 91.5, MCH 30.7, MCHC 33.6, RDW 12.9, Plt Count 176, MPV 7.8, Neut % (Auto) 70.1, Lymph % (Auto) 22.3, Coryell % (Auto) 6.7, Eos % (Auto) 0.6, Baso % (Auto) 0.3, Neut # (Auto) 4.6, Lymph # (Auto) 1.5, Coryell # (Auto) 0.4, Eos # (Auto) 0.0, Baso # (Auto) 0.0 05/12/20 17:10: Sodium 141, Potassium 4.0, Chloride 103, Carbon Dioxide 30, Anion Gap 12.0, BUN 13, Creatinine 0.90, Estimated Creat Clear 123, Estimated GFR 95, Est GFR ( Amer) 115, Glucose 97, Calcium 9.3 Result diagrams: 05/12/20 17:10 05/12/20 17:10 Orders (Tests/Meds): ED MEDICATIONS Generic Name Dose Route Start Last Admin Trade Name Néstor PRN Reason Stop Dose Admin Sodium Chloride 1,000 mls @ 999 mls/hr 05/12/20 16:45 05/12/20 17:54 Sod Chlor 0.9% 1000ml Bag IV 05/12/20 17:45 Not Given .Q1H1M ANDREW ORDERS Category Date Time Status Strep Screen Confirmation Stat Micro 05/12/20 16:04 Received Medical Decision Narrative: 35-year-old male presents with trauma to his anterior neck from 1 week ago. He is able to speak in full sentences and I do not hear any stridor on my exam. CT soft tissue of the neck obtained to evaluate for internal trauma. CT soft tissue of the neck shows no evidence of traumatic injury. Patient has been able to tolerate p.o. and his laboratory evaluation was unremarkable. Plan to refer to bearing ring assembler for laryngoscopy for complete work-up. He is agreeable to this plan plan to discharge at this time General Adult HPI - General Stated complaint: throat is tight Time Seen by Provider: 05/12/20 16:21 Mode of Arrival: Ambulatory Source of Information: Patient Limitations: No Limitations Description of Symptoms (Recalled from ER Triage Doc. by RN): PATIENT STATES HE WAS AT WORK APPROX 1 WEEK AGO AND A SMALL PIECE OF PLASTIC HIT HIM IN THE RIGHT SIDE OF HIS NECK AND CAUSED 2 SCRATCHES. LATER ON THAT EVENING HE REPORTS HIS THROAT TIGHTENED AND HAS BEEN DOING SO OFF AND ON X 1 WEEK. ALSO C/O INTERMITTEN DIZZINESS X 1 WEEK. HE STATES HE CONTACTED HIS PCP WHO REFERRED HIM TO ER - History of Present Illness HPI narrative: Presents with anterior neck pain. He says he was hitting off a hexagon plastic and part of the piece of plastic flew up and scratched his anterior neck in front of his voicebox this happened about 1 week ago. Since that edith
[2020-05-12 17:19] VITALS: PULSE 78; RESP 20; O2SAT 100; BMI 21.1
[2020-05-12 17:25] LABS: Basophils % 0.3 % (0.1-2.0); Eosinophils % 0.6 % (0.1-12.0); Hematocrit 43.4 % (42.0-52.0); Hemoglobin 14.6 g/dL (14.1-18.0); Lymphocytes # 1.5 K/mm3 (0.7-4.5); Lymphocytes % 22.3 % (10-50); Mean Corpuscular HGB Conc 33.6 g/dL (31.8-35.4); Mean Corpuscular Hemoglobin 30.7 pg (27.0-31.2); Mean Corpuscular Volume 91.5 fl (80-94); Mean Platelet Volume 7.8 fl (7.4-10.4); Monocytes # 0.4 K/mm3 (0.1-1.0); Monocytes % 6.7 % (1.7-9.3); Neutrophils # 4.6 K/mm3 (1.8-7.8); Neutrophils % 70.1 % (37.0-80.0); Platelet Count 176 K/mm3 (142-424); Red Blood Count 4.74 M/mm3 (4.60-6.20); Red Cell Distribution Width 12.9 % (11.5-17.5); White Blood Count 6.6 K/mm3 (4.8-10.8)
[2020-05-12 17:42] LABS: Blood Urea Nitrogen 13 mg/dl (9-20); Calcium 9.3 mg/dl (8.4-10.2); Carbon Dioxide 30 mmol/L (22.0-30.0); Chloride 103 mmol/L (98-107); Creatinine Clearance Estimated 123 mL/min (50-200); Estimated Glomerular Filt Rate 95 ml/min (>60); GFR (African American) 115 ML/MIN (>60); Glucose 97 mg/dl (74-100); Sodium 141 mmol/L (136-145)
[2020-05-12 18:28] VITALS: BP 112/68; PULSE 80; RESP 20; TEMP 36.4; O2SAT 100
== END 2020-05-12 18:29 | disposition home or self-care (01) ==
LOC: UTC 16:25 → ER 16:33
PROVIDERS: Physician Assistant; Emergency Provider Emergency Medicine; PCP Nurse Practitioner Family
DX: S10.83XA Contusion of other specified part of neck, initial encounter (principal); W22.8XXA Striking against or struck by other objects, initial encounter; Y92.63 Factory as the place of occurrence of the external cause; Y99.0 Civilian activity done for income or pay; Z88.0 Allergy status to penicillin; F41.9 Anxiety disorder, unspecified; Z79.899 Other long term (current) drug therapy
CPT/HCPCS: 70490; 80048; 85025; 87880; 99282

== ENCOUNTER → 2020-05-25 16:58 | Outpatient (CLI) | payer BC, SELFPAY ==
[2020-05-25 19:43] LABS: T4 (Thyroxine) 5.7 ug/dl (5.53-11.0)
[2020-05-25 19:56] LABS: Thyroid Stimulating Hormone 3.94 uIU/mL (0.465-4.68)
== END ==
PROVIDERS: Visit Provider Nurse Practitioner Family
DX: R00.2 Palpitations (principal)
CPT/HCPCS: 36415; 84436; 84443; 93225; 93226

== ENCOUNTER → 2020-08-02 12:24 | Outpatient (CLI) | payer BC, SELFPAY ==
--- NOTE | 2020-08-02 12:25 | MR_ITS ---
PROCEDURE INFORMATION: Exam: MRA Head Without Contrast; Arteriography Exam date and time: 08/02/2020 12:25 PM Age: 35 years old Clinical indication: Pain; Headache; Additional info: Eval posterior circulation. PT C/O dizziness and blurred vison with inflammaiton in eyes x 3 months TECHNIQUE: Imaging protocol: Magnetic resonance angiography head without contrast. Exam focused on the arteries. COMPARISON: BRW/O MRI-BRAIN W/O 06/18/2016 9:25 AM FINDINGS: ANTERIOR CIRCULATION: Right internal carotid artery: Intracranial segment is patent with no significant stenosis. No aneurysm. Right middle cerebral artery: No occlusion or significant stenosis. No aneurysm. Right anterior cerebral artery: No occlusion or significant stenosis. No aneurysm. Left internal carotid artery: Intracranial segment is patent with no significant stenosis. No aneurysm. Left middle cerebral artery: No occlusion or significant stenosis. No aneurysm. Left anterior cerebral artery: No occlusion or significant stenosis. No aneurysm. POSTERIOR CIRCULATION: Right vertebral artery: No occlusion or significant stenosis. No aneurysm. Left vertebral artery: No occlusion or significant stenosis. No aneurysm. Basilar artery: No occlusion or significant stenosis. No aneurysm. Right posterior cerebral artery: No occlusion or significant stenosis. No aneurysm. Left posterior cerebral artery: No occlusion or significant stenosis. No aneurysm. IMPRESSION: No stenosis or occlusion.
--- NOTE | 2020-08-02 12:25 | MR_ITS ---
PROCEDURE: MR HEAD/BRAIN WO CON CLINICAL INDICATION: abnormal feeling of falling, headache Pt c/o dizziness and blurred vision. Inflammation in eyes [id number]. COMPARISON: CT CT HEAD/BRAIN WO CON from 04/25/2020 TECHNIQUE: Routine multiplanar multi echo sequences are performed without gadolinium enhancement. FINDINGS: No midline shift, mass effect, intracranial hemorrhage, or hydrocephalus is evident. The cerebellopontine angles, cerebellum, and brainstem have an unremarkable appearance. There is a small subcortical T2 white matter hyperintensity measuring 3 mm in the left frontal lobe posteriorly. This shows some minimal increased signal on the diffusion-weighted images but also slightly hyperintense on the ADC images. The white matter has an otherwise unremarkable appearance. The pituitary, optic chiasm, corpus callosum, and craniocervical junction have an unremarkable appearance. Small amount of fluid noted in the right mastoid sinus.. No paranasal sinus air-fluid levels. There is mild dysconjugate gaze with the right eye slightly rotated to the right. IMPRESSION: 1. No definite acute intracranial findings. 2. Nonspecific small T2 white matter hyperintensity in the left frontal area. Stability may be confirmed with follow-up if clinically warranted. 3. Mild dysconjugate gaze Dictated by: Moses Herrera MD 08/03/2020 08:09 Moses Herrera MD in [place] 08/03/2020 08:09
--- NOTE | 2020-08-02 12:29 | XR_ITS ---
PROCEDURE: XR ORBIT BILATERAL MIN 4V CLINICAL INDICATION: RULE OUT METAL FOREIGN BODY FOR MRI COMPARISON: No exams were available for comparison TECHNIQUE: AP views are obtained of the orbits with the patient looking up and down. FINDINGS: No radio opaque foreign bodies evident. IMPRESSION: No radio opaque orbital foreign body identified. Dictated by: Moses Herrera MD 08/02/2020 12:47 Moses Herrera MD in [place] 08/02/2020 12:47
== END ==
PROVIDERS: PCP Nurse Practitioner Family; Visit Provider Specialist
DX: R51.9 Headache, unspecified (principal); G89.29 Other chronic pain; R44.9 Unspecified symptoms and signs involving general sensations and perceptions; H05.53 Retained (old) foreign body following penetrating wound of bilateral orbits
CPT/HCPCS: 70200; 70544; 70551

== ENCOUNTER → 2020-08-02 13:34 | Outpatient (POV) | payer BC, SELFPAY | DX: Z00.00 Encounter for general adult medical examination without abnormal findings (principal) ==

== ENCOUNTER → 2020-08-23 09:46 | Outpatient (CLI) | payer BC, SELFPAY ==
[2020-08-23 12:32] LABS: Erythrocyte Sedimentation Rate 7 mm/hr (0-15)
[2020-09-08 08:35] LABS: Antinuclear Antibodies (ANA) NEGATIVE
== END ==
PROVIDERS: Nurse Practitioner Family; PCP Nurse Practitioner Family; Visit Provider Specialist
DX: R51.9 Headache, unspecified (principal); G89.29 Other chronic pain; R44.9 Unspecified symptoms and signs involving general sensations and perceptions
CPT/HCPCS: 36415; 85651; 86038; 95816

== ENCOUNTER → 2020-09-20 14:19 | Outpatient (CLI) | payer BC, SELFPAY ==
--- NOTE | 2020-09-20 14:27 | XR_ITS ---
PROCEDURE: XR CERVICAL SPINE W FLEX/EXT CLINICAL INDICATION: neck pain COMPARISON: CR CS5 CERVICAL SPINE 4 OR 5 VIEWS from 07/15/2016 FINDINGS: Normal Alignment No fracture or dislocation. No lytic or blastic change. No significant degenerative change. The disc spaces are preserved. No foraminal narrowing. Flexion and extension views were obtained. There is limited flexion. No abnormal subluxation in flexion or extension. Patient's head is slightly tilted toward the right. IMPRESSION: Limited flexion with mild head tilt toward the right which could be seen with muscle spasm otherwise negative Dictated by: Moses Herrera MD 09/20/2020 14:55 Moses Herrera MD in [place] 09/20/2020 14:55
== END ==
PROVIDERS: PCP Nurse Practitioner Family; Visit Provider Nurse Practitioner Family
DX: M54.2 Cervicalgia (principal); G44.229 Chronic tension-type headache, not intractable; F41.9 Anxiety disorder, unspecified; F45.8 Other somatoform disorders; H93.13 Tinnitus, bilateral; R44.9 Unspecified symptoms and signs involving general sensations and perceptions
CPT/HCPCS: 72052

== ENCOUNTER → 2021-02-13 14:16 | Outpatient (CLI) | payer BC, SELFPAY ==
[2021-02-13 15:00] LABS: Barbiturates Screen,Urine Negative ng/ml (<200)
[2021-02-13 15:01] LABS: Amphetamine/Metha Screen,Urine Negative ng/ml (<1000); Benzodiazepines Screen,Urine Negative ng/ml (<200)
[2021-02-13 15:02] LABS: Cannabinoid Screen,Urine Negative ng/ml (<50)
[2021-02-13 15:03] LABS: Cocaine Screen,Urine Negative ng/ml (<300); Methadone Screen,Urine Negative ng/ml (<300)
[2021-02-13 15:05] LABS: Opiate Screen,Urine Negative ng/ml (<300)
[2021-02-13 15:06] LABS: Phencyclidine Screen,Urine Negative ng/ml (<25)
== END ==
PROVIDERS: Visit Provider Emergency Medicine
DX: Z79.899 Other long term (current) drug therapy (principal)
CPT/HCPCS: 80305

== ENCOUNTER → 2021-11-07 06:26 | Outpatient (CLI) | payer SELFPAY ==
[2021-11-07 18:28] LABS: Amphetamine/Metha Screen,Urine Negative ng/ml (<1000); Barbiturates Screen,Urine Negative ng/ml (<200)
[2021-11-07 18:29] LABS: Benzodiazepines Screen,Urine Negative ng/ml (<200)
[2021-11-07 18:30] LABS: Cannabinoid Screen,Urine Negative ng/ml (<50)
[2021-11-07 18:31] LABS: Cocaine Screen,Urine Negative ng/ml (<300); Methadone Screen,Urine Negative ng/ml (<300)
[2021-11-07 18:32] LABS: Opiate Screen,Urine Negative ng/ml (<300)
[2021-11-07 18:34] LABS: Phencyclidine Screen,Urine Negative ng/ml (<25)
== END ==
PROVIDERS: PCP Emergency Medicine; Visit Provider Emergency Medicine
DX: Z79.899 Other long term (current) drug therapy (principal)
CPT/HCPCS: 80305

== ENCOUNTER 2021-12-14 10:28 | Emergency (ER) | payer OTHER, SELFPAY ==
[2021-12-14 10:29] VITALS: BP 132/76; PULSE 102; RESP 18; TEMP 36.7; O2SAT 99; BMI 21.9
--- NOTE | 2021-12-14 10:44 | PC.NURSE ---
pt changing into a gown
--- NOTE | 2021-12-14 10:50 | PC.NURSE ---
CRISTINA SARABIA at
--- NOTE | 2021-12-14 10:55 | XR_ITS ---
FINAL REPORT CLINICAL HISTORY: foreign body anterior/inferior patella. Cellulitis REDNESS AND SWELLING, POSSIBLE THORN FINDINGS: Two views of the right knee were obtained. There is no evidence of fracture or dislocation. The bony alignment is normal. The joint spaces are preserved. There is no evidence of joint effusion. There is prepatellar soft tissue swelling.. No radiopaque foreign body is identified. IMPRESSION: Prepatellar soft tissue swelling without radiopaque foreign body or acute bony abnormality. Reviewed, Interpreted and Dictated by Daniel Hernandez III, MD Transcribed by Kyra Pringle Authenticated and [facility]
--- NOTE | 2021-12-14 11:22 | HMH.EDGENADL ---
Discharge Plan Disposition Patient Disposition: Home, Self-Care Condition: Good Prescriptions Prescriptions: New cephalexin 500 mg capsule 500 mg PO Q6H 7 Days Qty: 28 0RF sulfamethoxazole-trimethoprim 800-160 mg tablet 1 tab PO BID 7 Days Qty: 14 0RF No Action lorazepam [Ativan] 0.5 mg tablet 0.5 mg PO TID Qty: 90 2RF Referrals Follow up/Referrals: Keenan Wallace MD [Primary Care Provider] - See instructions Clinical Impressions Clinical Impression: Cellulitis Qualifiers: Site of cellulitis: extremity Site of cellulitis of extremity: lower extremity Laterality: right Qualified Code(s): L03.115 - Cellulitis of right lower limb Discharge ED Provider: Say Zhao General Adult HPI General Chief complaint: Extremity Injury, Lower Stated complaint: Right Knee Pain and swollen, no accident Time Seen by Provider: 12/14/21 10:45 Mode of Arrival: Ambulatory Source of Information: Patient Limitations: No Limitations Description of Symptoms (Recalled from ER Triage Doc. by RN): Pt c/o R knee pain x3 days, swelling noted to knee and lower leg. Redness and warmth noted to RLE (knee and calf area). Pt reports 3 days ago he got a thorn in his knee, states the next day he had a blister like area there that he popped and put peroxide on. Pt reports skin is painful to the touch, painful to walk on RLE. Pt staes no known fevers. History of Present Illness HPI narrative: This is a 36-year-old male with history of anxiety who is presenting with right knee injury. Patient states that he was in the [place] when he had a thorn got there is pain since take his right knee approximately 3-4 days prior to arrival. Since that time, he developed a blister on his right knee, popped it, since that time, he has developed diffuse erythema, redness, swelling of his right knee and right lower extremity. He has 9 out of 10 pain with ambulation. Has taken Tylenol and ibuprofen with minimal relief. Denies fevers, chills, nausea, vomiting, groin swelling, or any other concerning symptoms. There has been no drainage from the area. Related Data Previous Rx's Medication Instructions Recorded lorazepam 0.5 mg tablet (Ativan) 0.5 mg PO TID anxiety #90 tabs 11/07/21 cephalexin 500 mg capsule 500 mg PO Q6H 7 days #28 caps 12/14/21 sulfamethoxazole 800 1 tab PO BID 7 days #14 tabs 12/14/21 mg-trimethoprim 160 mg tablet Allergies Allergy/AdvReac Type Severity Reaction Status Date / Time Penicillins Allergy Verified 11/07/21 16:16 CONTRAST Allergy Uncoded 11/07/21 16:16 [facility] Medical History (Updated 12/14/21 @ 14:03 by Say Zhao MD) Anxiety Anxiety about health Surgical History (Updated 12/14/21 @ 10:47 by Unique Verduzco RN) History of ear surgery Social History Smoking Status: Never smoker alcohol intake: never substance use type: denies use current occupational status: employed Travel in the last 8 weeks: None household members: spouse and family housing: house 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 caffeine: Yes ROS Obtained: Yes All systems reviewed & no additional complaints except as documented Physical Exam General General appearance: alert and in no apparent distress Head Head exam: atraumatic, normocephalic and normal inspection Eye Eye exam: Present normal appearance, PERRL and EOMI ENT ENT exam: Present normal exam, normal oropharynx, mucous membranes moist, TM's normal bilaterally and normal external ear exam Neck Neck exam: Present normal inspection, full ROM and trachea midline; Absent meningismus or lymphadenopathy Chest Chest inspection: Present normal inspection and symmetric chest wall rise; Absent tenderness Respiratory Respiratory exam: Present normal lung sounds bilaterally; Absent respiratory distress Cardiovascular Cardiovascular exam: Present regular rate and normal rhythm; Absent JVD Abd
--- NOTE | 2021-12-14 11:24 | CA_ITS ---
FINAL REPORT TECHNIQUE: Multiple transverse and longitudinal images were performed of right the femoral-popliteal deep venous system with augmentation and compression maneuvers. CLINICAL HISTORY: PT GOT THORN IN RT KNEE 3 DAYS AGO NOW HAS SWELLING REDNESS RT KNEE INTO CALF FINDINGS: Right lower extremity duplex ultrasound demonstrates normal flow in the deep venous system. There is no abnormal echogenicity to suggest thrombus. There is normal compression and augmentation. IMPRESSION: No evidence of right DVT. Reviewed, Interpreted and Dictated by Daniel Hernandez III, MD Transcribed by Kyra Pringle Authenticated and [facility]
[2021-12-14 11:37] LABS: Basophils % 0.2 % (0.1-2.0); Eosinophils # 0.1 K/mm3 (0.0-0.4); Eosinophils % 0.4 % (0.1-12.0); Hematocrit 41.8 % (42.0-52.0); Hemoglobin 14.3 g/dL (14.1-18.0); Lymphocytes # 1.8 K/mm3 (0.7-4.5); Lymphocytes % 13.9 % (10-50); Mean Corpuscular HGB Conc 34.3 g/dL (31.8-35.4); Mean Corpuscular Hemoglobin 31.7 pg (27.0-31.2); Mean Corpuscular Volume 92.5 fl (80-94); Mean Platelet Volume 8.7 fl (7.4-10.4); Monocytes # 0.9 K/mm3 (0.1-1.0); Monocytes % 6.9 % (1.7-9.3); Neutrophils # 10.2 K/mm3 (1.8-7.8); Neutrophils % 78.7 % (37.0-80.0); Platelet Count 195 K/mm3 (142-424); Red Blood Count 4.52 M/mm3 (4.60-6.20); Red Cell Distribution Width 12.6 % (11.5-17.5); White Blood Count 12.9 K/mm3 (4.8-10.8)
[2021-12-14 11:43] LABS: Alanine Aminotransferase 16 U/L (12-78); Albumin Level 4.3 g/dl (3.5-5.0); Albumin/Globulin Ratio 1.4 (1.1-1.8); Alkaline Phosphatase 92 U/L (38-126); Anion Gap 14.1 mEq/L (5-15); Aspartate Amino Transferase 27 U/L (17-59); Bilirubin,Total 0.4 mg/dl (0.2-1.3); Blood Urea Nitrogen 17 mg/dl (9-20); Calcium 8.7 mg/dl (8.4-10.2); Carbon Dioxide 32 mmol/L (22.0-30.0); Chloride 96 mmol/L (98-107); Creatinine Clearance Estimated 125 mL/min (50-200); Estimated Glomerular Filt Rate 94 ml/min (>60); GFR (African American) 114 ML/MIN (>60); Globulin 3.1 g/dL (1.3-3.2); Glucose 100 mg/dl (74-100); Potassium 4.1 mmoL/L (3.5-5.1); Sodium 138 mmol/L (136-145); Total Protein,Serum 7.4 g/dl (6.3-8.2)
[2021-12-14 12:03] VITALS: BP 125/73; PULSE 84; RESP 16; O2SAT 99
--- NOTE | 2021-12-14 12:04 | PC.NURSE ---
pt sitting up in bed, states no needs at this time.
--- NOTE | 2021-12-14 12:25 | PC.NURSE ---
per CV lab staff pt doppler is negative, notified CRISTINA SARABIA
[2021-12-14 14:01] VITALS: BP 135/75; PULSE 82; RESP 16; O2SAT 97
[2021-12-14 14:18] VITALS: BP 135/75; PULSE 82; RESP 16; TEMP 36.7; O2SAT 97
== END 2021-12-14 14:18 | disposition home or self-care (01) ==
PROVIDERS: Emergency Provider Emergency Medicine; PCP Emergency Medicine
DX: L03.115 Cellulitis of right lower limb (principal); Z88.0 Allergy status to penicillin; Z91.041 Radiographic dye allergy status; F41.9 Anxiety disorder, unspecified
CPT/HCPCS: 73560; 80053; 85025; 87040; 93971; 99284

== ENCOUNTER 2022-03-14 15:34 | Emergency (ER) | payer BC, SELFPAY ==
[2022-03-14 16:10] VITALS: BP 125/81; PULSE 83; RESP 20; TEMP 36.8; O2SAT 100; BMI 20.9
--- NOTE | 2022-03-14 16:18 | EXP.UTC ---
Discharge Plan Disposition Patient Disposition: Home, Self-Care Condition: Good Prescriptions Prescriptions: New benzonatate [benzonatate] 100 mg capsule 100 mg PO TIDP PRN (Reason: Cough) Qty: 30 0RF methylprednisolone 4 mg Tablets,Dose Pack 4 mg PO DIRECTED Qty: 21 0RF cefdinir 300 mg capsule 300 mg PO BID Qty: 20 0RF No Action lorazepam [Ativan] 0.5 mg tablet 0.5 mg PO TID Qty: 90 2RF Referrals Follow up/Referrals: Keenan Wallace MD [Primary Care Provider] - See instructions Activity Restrictions/Add. Instructions Additional Instructions/Restrictions: Drink plenty of fluids. Take tylenol or ibuprofen for pain or fever. Take the medications as directed. Follow up with your regular doctor. GO TO THE ER FOR ANY WORSENING SYMPTOMS Clinical Impressions Clinical Impression: Acute bronchitis, Sinusitis Stand Alone Forms Stand Alone Forms: Work/School Release Instructions Patient Instructions: DI for Sinusitis, DI for Acute Bronchitis Discharge ED Provider: Fran Ruiz [facility] General Stated complaint: HEAD CONGESTION,amador Time Seen by Provider: 03/14/22 16:15 History of Present Illness Provider Complaint: He states that for the past 4 days he has had sinus congestion, scratchy sore throat and chest congestion. He has a productive cough with greenish sputum also. Related Data Previous Rx's Medication Instructions Recorded lorazepam 0.5 mg tablet (Ativan) 0.5 mg PO TID anxiety #90 tabs 02/06/22 benzonatate 100 mg capsule 100 mg PO TIDP PRN Cough #30 caps 03/14/22 cefdinir 300 mg capsule 300 mg PO BID #20 caps 03/14/22 methylprednisolone 4 mg tablets in 4 mg PO DIRECTED #21 tabs 03/14/22 a dose pack Allergies Allergy/AdvReac Type Severity Reaction Status Date / Time Penicillins Allergy Verified 03/14/22 16:34 CONTRAST Allergy Uncoded 02/06/22 11:17 [facility] Disclaimer: The information contained in this section may have been updated after the patient was seen, as this information can be updated by other users. 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 caffeine: Yes ROS Obtained: Yes All systems reviewed & no additional complaints except as documented Constitutional Constitutional: Reports chills and Reports fever(s) Eyes Eyes: Denies eye discharge ENT Ears, Nose, Mouth, and Throat: Reports as per HPI Cardiovascular Cardiovascular: Denies chest pain Respiratory Respiratory: Denies shortness of breath, Reports chest congestion, Reports cough, Denies stridor and Denies wheezing Gastrointestinal Gastrointestingal: Reports nausea; Denies abdominal pain, constipation, cramping, diarrhea or vomiting Musculoskeletal Musculoskeletal: Denies arthralgias Integumentary/Breasts Skin/Breast: Denies rash Neurologic Neurologic: Denies paresthesias Allergic/Immunologic Allergic/Immunologic: Denies wheezing Physical Exam General General appearance: alert and in no apparent distress Head Head exam: atraumatic, normocephalic and normal inspection Eye Eye exam: Present normal appearance, PERRL and EOMI ENT ENT exam: Present normal exam, normal oropharynx, mucous membranes moist, TM's normal bilaterally and normal external ear exam Neck Neck exam: Present normal inspection, full ROM and trachea midline; Absent meningismus or lymphadenopathy Chest Chest inspection: Present normal inspection and symmetric chest wall rise; Absent tenderness Respiratory Respiratory exam: Present
[2022-03-14 16:45] VITALS: BP 125/81; PULSE 83; RESP 20; TEMP 36.8; O2SAT 100
== END 2022-03-14 16:45 | disposition home or self-care (01) ==
PROVIDERS: Emergency Provider Nurse Practitioner Family; PCP Emergency Medicine
DX: J20.9 Acute bronchitis, unspecified (principal); J32.9 Chronic sinusitis, unspecified
CPT/HCPCS: 99212; 99213; G0463

== ENCOUNTER 2022-06-04 16:03 | Emergency (ER) | payer BC, SELFPAY ==
[2022-06-04 16:04] VITALS: BP 131/81; PULSE 81; RESP 18; TEMP 36.8; O2SAT 100; BMI 21.9
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
[2022-06-04 17:07] VITALS: BP 131/87; PULSE 81; RESP 20; TEMP 36.8; O2SAT 100
== END 2022-06-04 17:06 | disposition home or self-care (01) ==
PROVIDERS: Emergency Provider Nurse Practitioner; PCP Emergency Medicine
DX: L03.114 Cellulitis of left upper limb (principal); W60.XXXA Contact with nonvenomous plant thorns and spines and sharp leaves, initial encounter
CPT/HCPCS: 99212; 99214; G0463

== ENCOUNTER → 2023-01-29 22:20 | Outpatient (CLI) | payer BC, SELFPAY ==
[2023-01-29 20:29] LABS: Amphetamine/Metha Screen,Urine Negative ng/ml (<1000)
[2023-01-29 20:30] LABS: Barbiturates Screen,Urine Negative ng/ml (<200)
[2023-01-29 20:32] LABS: Benzodiazepines Screen,Urine Negative ng/ml (<200); Cannabinoid Screen,Urine Negative ng/ml (<50)
[2023-01-29 20:33] LABS: Cocaine Screen,Urine Negative ng/ml (<300)
[2023-01-29 20:34] LABS: Methadone Screen,Urine Negative ng/ml (<300); Opiate Screen,Urine Negative ng/ml (<300)
[2023-01-29 20:35] LABS: Phencyclidine Screen,Urine Negative ng/ml (<25)
[2023-02-03 11:10] LABS: Alprazolam Negative (Cutoff=100); Benzodiazepines Positive ng/mL (Cutoff=100); Clonazepam Negative (Cutoff=100); Flurazepam Negative (Cutoff=100); Lorazepam Positive (.); Midazolam Negative (Cutoff=100); Temazepam Negative (Cutoff=100); Triazolam Negative (Cutoff=100)
== END ==
LOC: LAB.DROPOF 01-30 03:33
PROVIDERS: PCP Nurse Practitioner Family; Visit Provider Nurse Practitioner Family
DX: F41.9 Anxiety disorder, unspecified (principal); Z79.899 Other long term (current) drug therapy
CPT/HCPCS: 80305; 80346